=== PATIENT | male | born 2000 | race Caucasian/White ===

== ENCOUNTER 2020-07-10 13:23 | Day surgery (SDC) | payer OTHER ==
[~2020-07-10] VITALS: Ht 177.8 cm; Wt 66.9 kg
[2020-07-10] MEDS ORDERED: SODIUM CHLORIDE FLUSH 10ML SYR IVF ONE ×2 (14:00→15:30)
--- NOTE | 2020-07-10 14:06 | NUR ---
PT CAME IN CO OF RLQ ABD PAIN THAT RADIATES TO BACK THAT STARTED ON SATURDAY. PT DENIES PAINFUL URINATION OR HX OF KIDNEY STONES. PT ADMITS TO DRINKING "A TON OF SODA EVERYDAY". PT DENIES THE NEED FOR PAIN MEDS AT THIS TIME. IV STARTED. LABS DRAWN. UA SENT. ACCOMPANIED BY MOTHER. PT CONNECTED TO MONITORING EQUIPMENT
[2020-07-10 14:14] LABS: BASOPHILS % (AUTO) 0 % (0-1); EOSINOPHILS % (AUTO) 0 % (1-7); LYMPHOCYTES % (AUTO) 10 % (22-44); MEAN CORPUSCULAR HEMOGLOBIN 30.7 pg (27.5-34.5); MEAN CORPUSCULAR HGB CONC 34.1 g/dL (33.2-36.2); MEAN PLATELET VOLUME 8.8 fL (7.4-10.4); MONOCYTES % (AUTO) 7 % (2-9); NEUTROPHILS % (AUTO) 82 % (42-75); PLATELET COUNT 181 x10^3/uL (130-400); RED BLOOD COUNT 5.53 x10^6/uL (4.38-5.82); RED CELL DISTRIBUTION WIDTH 13.3 % (9.4-14.8)
[2020-07-10 14:18] LABS: MD NO
[2020-07-10 14:20] LABS: MICROSCOPIC NOT IND
[2020-07-10 14:24] LABS: ALANINE AMINOTRANSFERASE 14 U/L (12-78); ALBUMIN 4.4 g/dL (3.4-5.0); ANION GAP 7 mmol/L (5-15); CHLORIDE 104 mmol/L (98-107)
[2020-07-10 14:26] LABS: ALKALINE PHOSPHATASE 70 U/L (45-117); BILIRUBIN,TOTAL 1.3 mg/dL (0.2-1.0); TOTAL PROTEIN 8.1 g/dL (6.4-8.2)
[2020-07-10] MEDS ORDERED: OMNIPAQUE 350 MG/ML, 100ML BOTTLE ONE (14:46)
[2020-07-10 14:56] VITALS: BP 127/75
--- NOTE | 2020-07-10 14:56 | NUR ---
PT RESTING IN [facility]. NAD. AWAITING CT RESULTS
[2020-07-10] MEDS ORDERED: SODIUM CHLORIDE 0.9% 1,000ML IVBOLUS ONE (15:30)
[2020-07-10] MEDS ORDERED: CEFOTETAN PMX 1GM/50ML 50 ML IVPB ONE (15:30)
[2020-07-10] MEDS ORDERED: BUPIVACAINE/PF 0.5% ONE (15:40)
[2020-07-10] MEDS ORDERED: EPINEPHRINE 1 MG/ML, 1ML ONE (15:40)
[2020-07-10] MEDS ORDERED: MIDAZOLAM 1 MG/ML, 2ML ONE (15:45)
[2020-07-10] MEDS ORDERED: FENTANYL PF 250 MCG/5ML ONE ×3 (15:46→15:49)
[2020-07-10] MEDS ORDERED: NEOSTIGMINE 1 MG/ML, 10ML ONE (15:51)
[2020-07-10] MEDS ORDERED: SUCCINYLCHOLINE 20 MG/ML, 10ML ONE (15:51)
[2020-07-10] MEDS ORDERED: DEXAMETHASONE 4 MG/ML, 1ML ONE (15:51)
[2020-07-10] MEDS ORDERED: PROPOFOL 10 MG/ML, 20ML ONE (15:51)
[2020-07-10] MEDS ORDERED: ONDANSETRON 2MG/ML, 2ML ONE ×2 (15:51→16:14)
[2020-07-10] MEDS ORDERED: GLYCOPYRROLATE 0.2MG/1ML, 5ML ONE (15:51)
[2020-07-10] MEDS ORDERED: CEFAZOLIN 1,000 MG ONE (15:51)
[2020-07-10] MEDS ORDERED: ROCURONIUM 10MG/ML,5ML ONE (15:51)
[2020-07-10] MEDS ORDERED: SODIUM CHLORIDE FLUSH 10ML SYR IVF PRN (16:00)
[2020-07-10] MEDS ORDERED: LIDOCAINE 1%, 20ML ONE (16:14)
[2020-07-10] MEDS ORDERED: ACETAMINOPHEN 650 MG/20.3 ML UDC ONE (16:49)
[2020-07-10] MEDS ORDERED: OXYcodone 5 MG/5 ML ORAL.SOL UDC ONE (16:49)
[2020-07-10] MEDS ORDERED: FENTANYL PF 100 MCG/2ML ONE (16:49)
[2020-07-10] MEDS ORDERED: BUPIVACAINE/PF-EPI 0.5% 1:200K IM ONE (16:52)
[2020-07-10] MEDS ORDERED: SUGAMMADEX 200 MG/2 ML IVPush ONE (16:59)
[2020-07-10] MEDS ORDERED: LABETALOL 5MG/ML, 20ML IV PRN (18:00)
[2020-07-10] MEDS ORDERED: OXYcodone 5 MG/5 ML ORAL.SOL UDC PO PRN (18:00)
[2020-07-10] MEDS ORDERED: ACETAMINOPHEN 325 MG TABLET PO PRN (18:00)
[2020-07-10] MEDS ORDERED: hydrALAzine 20 MG/ML, 1ML IV PRN (18:00)
[2020-07-10] MEDS ORDERED: FENTANYL PF 100 MCG/2ML IV PRN (18:00)
[2020-07-10] MEDS ORDERED: EPHEDRINE 50 MG/ML, 1ML IVPush PRN (18:00)
[2020-07-10] MEDS ORDERED: MEPERIDINE/PF 25MG/0.5ML IVPush PRN (18:00)
[2020-07-10] MEDS ORDERED: ONDANSETRON 2MG/ML, 2ML IVPush PRN (18:00)
[2020-07-10] MEDS ORDERED: PROMETHAZINE 12.5 MG SUPP PR PRN (18:00)
[2020-07-10] MEDS ORDERED: KETOROLAC 30 MG/1 ML IVPush PRN (18:00)
[2020-07-10] MEDS ORDERED: HYDROmorphone 1 MG/ML, 1ML INJ IVPush PRN (18:00)
[2020-07-10] MEDS ORDERED: HYDR-3240 PO (18:36)
== END 2020-07-10 17:00 | disposition home or self-care (01) ==
LOC: ED 14:36 → EDIP 15:51 → UNDOADMIN 15:51 → OUT 15:51 → UNDODISIN 17:00
PROVIDERS: ATTEND Surgery Vascular Surgery
DX: K35.80 Unspecified acute appendicitis (principal); U07.1 COVID-19; R10.31 Right lower quadrant pain; F12.90 Cannabis use, unspecified, uncomplicated
CPT/HCPCS: 36415; 44970; 74177; 80053; 81003; 85025; 87635; 88304; 99285; J0171; J0330; J0690; J1100; J1885; J2250; J2405; J2704; J2710; J3010; J7030; Q9967